=== PATIENT | male | born 1945 | race Caucasian/White ===

== ENCOUNTER 2023-10-17 08:20 | Outpatient (RCR) | payer OTHER, MEDICARE, SELFPAY | END 2023-10-17 23:59 | disposition home or self-care (01) | LOC: RPT 08:20 | PROVIDERS: ATTENDING PHYSICIAN Psychiatry & Neurology Neurology; FAMILY PHYSICIAN Nurse Practitioner Family | DX: G62.9 Polyneuropathy, unspecified (principal); M21.371 Foot drop, right foot; M21.372 Foot drop, left foot; Z73.6 Limitation of activities due to disability | CPT/HCPCS: 97112; 97163 ==

== ENCOUNTER 2023-11-17 14:01 | Outpatient (RCR) | payer OTHER, MEDICARE, SELFPAY | END 2023-11-17 23:59 | disposition home or self-care (01) | LOC: RPT 14:01 | PROVIDERS: ATTENDING PHYSICIAN Psychiatry & Neurology Neurology; FAMILY PHYSICIAN Nurse Practitioner Family | DX: G62.9 Polyneuropathy, unspecified (principal); M21.371 Foot drop, right foot; M21.372 Foot drop, left foot; Z73.6 Limitation of activities due to disability | CPT/HCPCS: 97110; 97112; 97530 ==

== ENCOUNTER 2023-12-14 15:11 | Outpatient (RCR) | payer BC, MEDICARE, SELFPAY | END 2023-12-14 23:59 | disposition home or self-care (01) | LOC: RPT 15:11 | PROVIDERS: ATTENDING PHYSICIAN Psychiatry & Neurology Neurology; FAMILY PHYSICIAN Nurse Practitioner Family | DX: G62.9 Polyneuropathy, unspecified (principal); M21.371 Foot drop, right foot; M21.372 Foot drop, left foot; Z73.6 Limitation of activities due to disability | CPT/HCPCS: 97110; 97112; 97530 ==

== ENCOUNTER 2024-01-11 13:56 | Outpatient (RCR) | payer BC, MEDICARE, SELFPAY | END 2024-01-11 15:21 | disposition home or self-care (01) | LOC: RPT 13:56 | PROVIDERS: ATTENDING PHYSICIAN Psychiatry & Neurology Neurology; FAMILY PHYSICIAN Nurse Practitioner Family | DX: G62.9 Polyneuropathy, unspecified (principal); M21.371 Foot drop, right foot; M21.372 Foot drop, left foot; Z73.6 Limitation of activities due to disability | CPT/HCPCS: 97110; 97112; 97530 ==

== ENCOUNTER → 2024-01-11 14:54 | Outpatient (REF) | payer BC, MEDICARE, SELFPAY | LOC: RAD 14:54 | PROVIDERS: ATTENDING PHYSICIAN Psychiatry & Neurology Neurology; FAMILY PHYSICIAN Nurse Practitioner Family | DX: R20.9 Unspecified disturbances of skin sensation (principal) | CPT/HCPCS: 93922; 93925 ==

== ENCOUNTER → 2024-02-21 06:26 | Day surgery (SDC) | payer BC, SELFPAY | LOC: GI 06:26 | PROVIDERS: ATTENDING PHYSICIAN Internal Medicine Gastroenterology | DX: Z12.11 Encounter for screening for malignant neoplasm of colon (principal); R19.5 Other fecal abnormalities; K57.30 Diverticulosis of large intestine without perforation or abscess without bleeding; K64.8 Other hemorrhoids; K63.5 Polyp of colon | CPT/HCPCS: 45380; 88305 ==

== ENCOUNTER → 2024-04-02 12:04 | Outpatient (REF) | payer BC, MEDICARE, SELFPAY | LOC: RAD 12:04 | PROVIDERS: ATTENDING PHYSICIAN Nurse Practitioner Family | DX: M79.672 Pain in left foot (principal); W19.XXXA Unspecified fall, initial encounter; M25.572 Pain in left ankle and joints of left foot | CPT/HCPCS: 73610; 73630 ==

== ENCOUNTER → 2025-03-04 09:48 | Outpatient (REF) | payer OTHER, MEDICARE, SELFPAY ==
[2025-03-04 10:20] LABS: Hematocrit 40.4 % (39.0-52.0); Hemoglobin 13.7 g/dL (13.0-18.0); Mean Corp Hgb Conc. 33.9 g/dL (33.0-37.0); Mean Corpuscular Volume 92.2 fL (80.0-94.0); Nucleated Red Blood Cells % 0 % (-); Platelet Count 291 10^3/uL (130-400); Red Cell Dist. Width 13.9 % (11.5-14.5)
[2025-03-04 10:25] VITALS: BP 155/84; BP_SYST 80
[2025-03-04 10:35] LABS: INR 0.93; PT 12.7 Sec (11.4-14.6)
[2025-03-04 12:06] VITALS: BP 142/91; BP 155/91; BP_SYST 70
[2025-03-04 12:42] LABS: CSF Color Colorless; CSF Tube # Clarity Clear
[2025-03-04 12:43] LABS: Red Cell Count/CSF 51 mm^3; White Blood Cell Count/CSF 1 mm^3 (0-5)
[2025-03-04 12:44] LABS: CSF Color Colorless
[2025-03-04 12:45] LABS: Red Cell Count/CSF 82 mm^3; White Cell Count/CSF 7 mm^3 (0-5)
[2025-03-04 13:50] LABS: Spinal Fluid Granulocytes 0 %; Spinal Fluid Lymphocytes 80 %; Spinal Fluid Macrophages 20 %
== END ==
LOC: RADI 09:48
PROVIDERS: ATTENDING PHYSICIAN Nurse Practitioner Family; FAMILY PHYSICIAN Internal Medicine; OTHER PHYSICIAN Physician Assistant; OTHER PHYSICIAN Psychiatry & Neurology Neurology
DX: G61.81 Chronic inflammatory demyelinating polyneuritis (principal); D68.8 Other specified coagulation defects
CPT/HCPCS: 36415; 62328; 82945; 84157; 85025; 85610; 87015; 87070; 87205; 89051